=== PATIENT | male | born 1975 | race Caucasian/White ===

== ENCOUNTER 2023-08-29 17:02 | Emergency (ER) | payer OTHER, SELFPAY ==
[2023-08-29 17:15] VITALS: BP 169/80; PULSE 70; RESP 16; TEMP 36.8; O2SAT 99
[2023-08-29 17:17] VITALS: BP 169/80; PULSE 70; RESP 16; TEMP 36.8; O2SAT 99
--- NOTE | 2023-08-29 17:34 | ED.WOUNDLAC ---
HPI - Wound/Laceration General Chief Complaint: Wound/Laceration Stated Complaint: cut finger on left hand Time Seen by Provider: 08/29/23 17:34 Source: patient Mode of arrival: ambulatory Limitations: no limitations History of Present Illness HPI narrative: 48-year-old male presented for complaint of laceration to the left ring finger after injury today. He states he wrapped a weed around the hand to pull it out of the ground, when he cut his hand. Cleanse the site at home with saline. Denies decreased range of motion or decreased sensation. Related Data Home Medications Medication Instructions Recorded Confirmed lisinopril 20 mg tablet 20 mg PO DAILY 08/29/23 08/29/23 omega-3 acid ethyl esters 1 gram 1 g PO DIRECTED 08/29/23 08/29/23 capsule Allergies Allergy/AdvReac Type Severity Reaction Status Date / Time No Known Allergies Allergy Verified 08/29/23 17:16 Review of Systems Review of Systems: CONSTITUTIONAL: Denies body aches, fever, chills, or sweats. CARDIOVASCULAR: Denies chest pain, palpitations, or edema. RESPIRATORY: Denies cough or dyspnea. GASTROINTESTINAL: Denies abdominal pain, nausea, vomiting, or diarrhea. SKIN: Laceration left ring finger MUSCULOSKELETAL: Denies back pain, joint pain, or myalgia. NEUROLOGIC: Denies headache, numbness, tingling, or weakness. PMFSH Comments At time of signature, I have reviewed and agree with nursing past medical, surgical, social and family history unless otherwise noted. Please see nursing chart for further information. There is no relevant family history pertinent to the presenting complaint Exam Narrative: GENERAL: Well-appearing left 4th digit has normal strength and sensation. 5/5 strength with digit flexion, extension. Range of motion normal. No clubbing, cyanosis, or edema noted. No point tenderness. normal digital cascade with flexion of fingers, median, ulnar and radial nerve intact. Normal sensation of each side of finger. No scissoring. Good capillary refill and radial pulse. Distal capillary refill less than 3 seconds. SKIN: Warm, dry. Laceration to 4th digit palmar/ulnar aspect of MCP 1.5cm and gaping. NEURO: Alert and oriented x3. Course Course Emergency Course: Patient is aware of diagnosis, understands and agrees to treatment plan. Anticipatory guidance given. Patient agrees to follow-up as directed and is aware of reasons to seek care at the emergency department. Portions of this record may have been created with voice recognition software Level of Care: Express Care Visit Vital Signs Vital signs: Vital Signs Temperature 98.3 F 08/29/23 17:15 Pulse Rate 70 08/29/23 17:15 Respiratory Rate 16 08/29/23 17:15 Blood Pressure 169/80 H 08/29/23 17:15 Pulse Oximetry 99 08/29/23 17:15 Oxygen Delivery Room Air 08/29/23 17:15 Temperature 98.3 F 08/29/23 17:17 Pulse Rate 70 08/29/23 17:17 Respiratory Rate 16 08/29/23 17:17 Blood Pressure 169/80 H 08/29/23 17:17 Pulse Oximetry 99 08/29/23 17:17 Oxygen Delivery Room Air 08/29/23 17:17 Reviewed Procedures Laceration left 4th digit: Date: 08/29/23 Size (cm): 1.5 Depth: simple, single layer Local Anesthetic: lidocaine 1% Amount of anesthesia used (mL): 3 Pre-repair: irrigated (500mL) ====== Skin Level ====== Skin layer closed with: nylon Size (cm): 5-0 Number of sutures: 4 Technique: simple, interrupted ====== Subcutaneous Layer ====== ====== Muscle Layer ====== ====== Tendon Layer ====== Dressing: The procedure and its alternatives were reviewed with patient. Risks were reviewed with patient including infection and damage to nearby structures. Patient provided verbal informed consent. The patient was positioned appropriately. Sterile drapes applied to maintain sterile field. Wound was explored for abnormalities including
== END 2023-08-29 18:58 | disposition home or self-care (01) ==
PROVIDERS: Emergency Provider Nurse Practitioner Family; PCP Physician Assistant
DX: S61.215A Laceration without foreign body of left ring finger without damage to nail, initial encounter (principal); W25.XXXA Contact with sharp glass, initial encounter; I10 Essential (primary) hypertension; M10.9 Gout, unspecified
CPT/HCPCS: 12001; 99213; G0463

== ENCOUNTER 2024-01-04 12:08 | Emergency (ER) | payer OTHER, SELFPAY ==
[2024-01-04 12:19] VITALS: BP 149/92; PULSE 67; RESP 16; O2SAT 100
[2024-01-04 12:27] VITALS: TEMP 36.6
--- NOTE | 2024-01-04 12:42 | ED_ITS ---
HPI - Extremity Problem General Chief complaint: Extremity Injury, Lower Stated complaint: right ankle gout Time Seen by Provider: 01/04/24 12:29 Source: patient, family () and RN notes reviewed Mode of arrival: ambulatory (with crutches) Limitations: no limitations History of Present Illness HPI Narrative: Patient presents today with a 4 day history of right foot and ankle pain and swelling. Believes he is having a gout flare. He had 1 in the left foot 2 weeks ago the last for 6 days and resolved on its own. He has attempted to reach his PCP but was unable to get an appointment. He has tried some p rednisone that he had at home, 1st 40 mg on the 1st day then 20 mg for the past 2 days with only some mild relief. Currently rates his pain 12/20. Related Data Home Medications Medication Instructions Recorded Confirmed lisinopril 20 mg tablet 20 mg PO DAILY 08/29/23 01/04/24 omega-3 acid ethyl esters 1 gram 1 g PO DIRECTED 08/29/23 01/04/24 capsule Allergies Allergy/AdvReac Type Severity Reaction Status Date / Time No Known Allergies Allergy Verified 01/04/24 12:15 Review of Systems Review of Systems: CONSTITUTIONAL: Denies body aches, fever, chills, or sweats. EYES: Denies visual changes, redness, or discharge. ENT: Denies rhinorrhea, congestion, sore throat, or otalgia. CARDIOVASCULAR: Denies chest pain, palpitations, or edema. RESPIRATORY: Denies cough or dyspnea. GASTROINTESTINAL: Denies abdominal pain, nausea, vomiting, or diarrhea. GENITOURINARY: Denies dysuria or hematuria. SKIN: Denies rash, itching, or wounds. MUSCULOSKELETAL: Redness, swelling, pain to the right foot and ankle NEUROLOGIC: Denies headache, numbness, tingling, or weakness. PSYCH: Denies depression or anxiety. [facility] Past Medical History Medical History (Updated 01/04/24 @ 12:49 by Yael Medley, [employer], ) Gout Hypertension Comments At time of signature, I have reviewed and agree with nursing past medical, surgical, social and family history unless otherwise noted. Please see nursing chart for further information. There is no relevant family history pertinent to the presenting complaint Exam Narrative: GENERAL: Well-appearing, well-nourished, and in no acute distress. HEAD: Normocephalic, atraumatic. EYES: EOMI. No redness or drainage. Conjunctivae normal. ENT: Mucous membranes pink and moist. NECK: Normal AROM. CHEST: No respiratory distress. EXTREMITIES: Right foot: Mild swelling of the foot and ankle with some scant redness. Tenderness the entire foot and ankle. Distal sensation intact. Capillary refill normal. Pedal pulse is strong. Decreased range of motion of the ankle due to pain. No calf tenderness. SKIN: Warm, dry, no rash. Capillary refill normal. Normal skin turgor. NEURO: No focal deficits. Alert and oriented x3. Gait steady. PSYCH: Normal affect. No signs of depression or anxiety. Course Course Level of Care: Express Care Visit Vital Signs Vital signs: Vital Signs Pulse Rate 67 01/04/24 12:19 Respiratory Rate 16 01/04/24 12:19 Blood Pressure 149/92 H 01/04/24 12:19 Pulse Oximetry 100 01/04/24 12:19 Oxygen Delivery Room Air 01/04/24 12:19 Pulse Rate 67 01/04/24 12:19 Respiratory Rate 16 01/04/24 12:19 Blood Pressure 149/92 H 01/04/24 12:19 Pulse Oximetry 100 01/04/24 12:19 Oxygen Delivery Room Air 01/04/24 12:19 Reviewed MDM - Extremity (Nontraumatic) MDM Narrative Medical decision making narrative: Patient's exam is consistent with gout. He has extensive experience with gout flares in the past. Patient will be started on a higher dose prednisone as well as colchicine. Instructed to also started NSAID. Anticipatory guidance given. Differential Diagnosis Differential diagnosis: Likely gout, cellulitis, lower extremity edema and deep vein thrombosis of lower extremity Critical Care Time Critical Care Time Critical Care Time: No Discharge Plan Discharge Clinical Impression: Gout flare Qualifiers: Gout site: multiple sites Gout etiology: unspecified cause Qualified Code(s): M10.9 - Gout, unspecified Patient Disposition: Home, Self-Care Condition: Stable Instructions: Gout (ED) Additional Instructions: Please take medications as prescribed. You may also start an anti-inflammatory such as Aleve or ibuprofen. Follow-up with your PCP next week if symptoms are not improving. Your blood pressure was elevated above 120/80 today at Urgent Care. This puts you above the threshold for follow up. Please schedule a followup visit with your personal physician as soon as possible, for further evaluation and treatment. Even blood pressure exceeding 120/80 may indicate pre-hypertension. Prescriptions: New prednisone 50 mg tablet 50 mg PO DAILY 5 Days Qty: 5 0RF colchicine 0.6 mg tablet 0.6 mg PO BID 7 Days Qty: 14 0RF No Action omega-3 acid ethyl esters 1 gram capsule 1 g PO DIRECTED lisinopril 20 mg Tablet 20 mg PO DAILY Follow-up/Referrals: Franny,DWAYNE Mejía [Primary Care Provider] - Time of Disposition: 12:53
[2024-01-04 15:02] VITALS: TEMP 36.6
== END 2024-01-04 12:58 | disposition home or self-care (01) ==
PROVIDERS: Emergency Provider Nurse Practitioner; PCP Physician Assistant
DX: M10.9 Gout, unspecified (principal); I10 Essential (primary) hypertension
CPT/HCPCS: 99213; G0463